=== PATIENT | male | born 1935 | race Caucasian/White ===

== ENCOUNTER 2018-05-29 21:58 | Inpatient (IN) | payer MEDICARE ==
[~2018-05-29] VITALS: Ht 170.2 cm; Wt 77.1 kg
[2018-05-29 22:00] VITALS: BP 108/40
[2018-05-29] MEDS: Albuterol ud Inhalation HHN SCH ×3 (22:25→22:50)
[2018-05-29 22:33] LABS: HEMATOCRIT 34.4 % (42.0-52.0); MEAN CORPUSCULAR VOLUME 96 FL (80-99); PLATELET COUNT 131 K/UL (150-450); RED BLOOD COUNT 3.57 M/UL (4.70-6.10); RED CELL DISTRIBUTION WIDTH 12.2 % (11.6-14.8); WHITE BLOOD COUNT 12.1 K/UL (4.8-10.8)
[2018-05-29 22:41] LABS: INR 1.1 (0.9-1.1)
[2018-05-29 22:42] LABS: ANION GAP 7 mmol/L (5-15); BLOOD UREA NITROGEN 29 mg/dL (7-18); CALCIUM 8.5 MG/DL (8.5-10.1); CARBON DIOXIDE 26 MMOL/L (21-32); CHLORIDE 106 MMOL/L (98-107); CREATININE 1.7 MG/DL (0.55-1.30); POTASSIUM 3.9 MMOL/L (3.5-5.1); SODIUM 139 MMOL/L (136-145)
[2018-05-29 22:52] LABS: ALANINE AMINOTRANSFERASE 18 U/L (12-78); ALBUMIN 3.2 G/DL (3.4-5.0); ALBUMIN/GLOBULIN RATIO 0.9 (1.0-2.7); ALKALINE PHOSPHATASE 74 U/L (46-116); ASPARTATE AMINO TRANSFERASE 59 U/L (15-37); BILIRUBIN,TOTAL 1.1 MG/DL (0.2-1.0); CREATINE KINASE 480 U/L (26-308)
[2018-05-29 22:53] LABS: BILIRUBIN,DIRECT 0.4 MG/DL (0.0-0.3)
[2018-05-29 22:59] VITALS: BP 109/69
[2018-05-29] MEDS ORDERED: Isovue-370 150ml vial INJ PRN (23:00)
[2018-05-29] MEDS ORDERED: LEXAPRO10 MG ORAL (23:07)
[2018-05-29] MEDS ORDERED: TIMOPTIC5 ML LEFT EYE (23:07)
[2018-05-29] MEDS ORDERED: ASPIRIN81 MG ORAL (23:07)
[2018-05-29] MEDS ORDERED: QUETIAPINE FUMA25 MG ORAL (23:07)
[2018-05-29] MEDS ORDERED: VITAMIN B-12100 MC1 PO (23:07)
[2018-05-29] MEDS ORDERED: KLOR-CON M2020 MEQ ORAL (23:07)
[2018-05-29] MEDS ORDERED: SINEMET 25-1001 EAC1 ORAL (23:07)
[2018-05-29 23:27] LABS: BILIRUBIN, URINE 1+ (NEGATIVE); GLUCOSE, URINE (UA) NEGATIVE (NEGATIVE); KETONES,URINE 2+ (NEGATIVE); LEUKOCYTE ESTERASE ,URINE 2+ (NEGATIVE); NITRITE,URINE NEGATIVE (NEGATIVE); PH,URINE 5 (4.5-8.0); PROTEIN,URINE 3+ (NEGATIVE); UROBILINOGEN,URINE 8 MG/DL (0.0-1.0)
[2018-05-29 23:30] VITALS: BP 108/79
[2018-05-29 23:39] LABS: APPEARANCE,URINE SLIGHTLY CLOUDY; COLOR,URINE AMBER
[2018-05-30] MEDS ORDERED: Heparin 25,000u/D5W 500ml 500 ML IV SCH ×2 (01:30→03:30)
[2018-05-30] MEDS ORDERED: Heparin 5000 units/ml inj IV ONE ×2 (01:30→03:30)
[2018-05-30 02:06] VITALS: BP 120/83
[2018-05-30] MEDS ORDERED: BYSTOLIC10 MG ORAL (02:08)
[2018-05-30] MEDS ORDERED: TAMSULOSIN HCL0.4 MG ORAL (02:08)
[2018-05-30] MEDS ORDERED: HYDROCHLOROTHIA25 MG ORAL (02:08)
[2018-05-30] MEDS ORDERED: VITAMIN D400 INTLU ORAL (02:08)
[2018-05-30 03:00] VITALS: BP 142/79
[2018-05-30 04:00] VITALS: BP 142/89
[2018-05-30] MEDS: Aspirin Baby 81mg ORAL SCH (08:29)
[2018-05-30] MEDS: Tamsulosin 0.4mg cap ORAL SCH ×2 (08:29→17:31)
[2018-05-30] MEDS ORDERED: Levodopa/Carbidopa 25/100 tab ORAL SCH (09:00)
--- NOTE | 2018-05-30 10:17 | Diagnostic Imaging Report ---
Indication: Chest pain, shortness of breath Technique: CT pulmonary angiogram performed utilizing automated exposure control with intravenous contrast. Axial, sagittal and coronal reconstructions were obtained. 3-D volumetric reconstructions were also performed. CT dose: Total DLP 912 mGycm; CTDI vol 0.2, 0.2, 21.6, 88.4, 26.4 mGy Comparison: None Findings: There are bilateral central and segmental pulmonary emboli throughout both lungs. No saddle pulmonary embolus. Main pulmonary artery is normal in caliber. No thoracic aortic aneurysm or dissection. There are small bilateral pleural effusions, right greater than left, with compressive atelectasis in the bilateral lower lobes. No pneumothorax. No pathologically enlarged mediastinal adenopathy. Thyroid unremarkable. Imaged upper abdomen is grossly unremarkable. There is scoliosis, osteopenia and multilevel degenerative change of the spine. No acute osseous abnormality. IMPRESSION: * Bilateral acute central and segmental pulmonary emboli throughout both lungs. * Small bilateral pleural effusions with adjacent likely compressive atelectasis in the bilateral lower lobes. This corresponds with the stat rad report. The CT scanner at [facility] is accredited by the [employer] and the scans are performed using protocols designed to limit radiation exposure to as low as reasonably achievable to attain images of sufficient resolution adequate for diagnostic evaluation.
[2018-05-30] MEDS: Timoptic 0.25% Op Soln 2.5ml LEFT EYE SCH (11:16)
--- NOTE | 2018-05-30 11:27 | Diagnostic Imaging Report ---
Indication: Chest pain Technique: XRAY Chest 1v Comparison: None Findings: Heart is enlarged. Atherosclerotic opacification is noted in the aortic arch. There is biapical scarring. There is blunting of the bilateral costophrenic sulci possibly related to trace bilateral pleural effusions. There is linear atelectasis at the left base. No pneumothorax. No acute osseous abnormality. Impression: Trace bilateral pleural effusions. Left basilar atelectasis. Correlate clinically to exclude pneumonia.
[2018-05-30] MEDS ORDERED: Eliquis 2.5mg tablet ORAL SCH ×3 (12:00→18:00)
--- NOTE | 2018-05-30 12:22 | Cardiology Progress Note ---
Assessment/Plan Assessment/Plan bilateral pulm emboli chest pain / abn cardiac enzyme likely related to above hs of htn parkinsonism hsof recent fall and syncope repat trop and ekg and echo on noacs may need to have cano for cause of PE venous duplex will follow many thanks [id number] Objective Last 24 Hour Vital Signs Date Time Temp Pulse Resp B/P (MAP) Pulse Ox O2 Delivery O2 Flow Rate FiO2 05/30/18 09:00 Nasal Cannula 4.0 05/30/18 08:00 83 05/30/18 04:00 76 05/30/18 04:00 Nasal Cannula 4.0 05/30/18 04:00 Nasal Cannula 4.0 05/30/18 04:00 97.9 72 16 142/89 (106) 96 97.9 05/30/18 03:00 97.7 75 16 142/79 (100) 97 97.7 05/30/18 02:58 99.0 73 20 120/83 90 Nasal Cannula 5.0 36 99.0 05/30/18 02:06 99.0 73 20 120/83 90 Nasal Cannula 5.0 99.0 05/29/18 23:30 98.3 92 20 108/79 90 Nasal Cannula 4.0 98.3 05/29/18 23:11 83 22 96 Nasal Cannula 4.0 36 05/29/18 22:59 98.1 92 23 109/69 90 Nasal Cannula 6.0 98.1 05/29/18 22:49 81 22 98 Nasal Cannula 4.0 36 05/29/18 22:49 82 22 98 Nasal Cannula 4.0 36 05/29/18 22:32 88 22 95 Nasal Cannula 4.0 36 05/29/18 22:32 88 22 95 Nasal Cannula 4.0 36 05/29/18 22:31 86 22 4.0 36 05/29/18 22:26 86 22 90 Nasal Cannula 4.0 36 05/29/18 22:00 98.1 84 16 108/40 78 Room Air 98.1 05/29/18 21:52 98.0 88 16 113/78 78 Room Air 98.1 Intake and Output 05/29/18 05/30/18 19:00 07:00 Intake Total 48.987 ml Balance 48.987 ml Intake Oral 0 ml IV Total 48.987 ml # Voids 2 Laboratory Tests Test 05/29/18 22:15 7/9/18 23:04 05/30/18 00:32 05/30/18 07:45 White Blood Count 12.1 K/UL (4.8-10.8) H Red Blood Count 3.57 M/UL (4.70-6.10) L Hemoglobin 12.0 G/DL (14.2-18.0) L Hematocrit 34.4 % (42.0-52.0) L Mean Corpuscular Volume 96 FL (80-99) Mean Corpuscular Hemoglobin 33.7 PG (27.0-31.0) H Mean Corpuscular Hemoglobin Concent 34.9 G/DL (32.0-36.0) Red Cell Distribution Width 12.2 % (11.6-14.8) Platelet Count 131 K/UL (150-450) L Mean Platelet Volume 8.8 FL (6.5-10.1) Neutrophils (%) (Auto) % (45.0-75.0) Lymphocytes (%) (Auto) % (20.0-45.0) Monocytes (%) (Auto) % (1.0-10.0) Eosinophils (%) (Auto) % (0.0-3.0) Basophils (%) (Auto) % (0.0-2.0) Differential Total Cells Counted 100 Neutrophils % (Manual) 87 % (45-75) H Lymphocytes % (Manual) 9 % (20-45) L Monocytes % (Manual) 4 % (1-10) Eosinophils % (Manual) 0 % (0-3) Basophils % (Manual) 0 % (0-2) Band Neutrophils 0 % (0-8) Platelet Estimate Adequate Platelet Morphology Normal Red Blood Cell Morphology Normal Prothrombin Time 11.5 SEC (9.30-11.50) Prothromb Time International Ratio 1.1 (0.9-1.1) Activated Partial Thromboplast Time 25 SEC (23-33) 40 SEC (23-33) H Sodium Level 139 MMOL/L (136-145) Potassium Level 3.9 MMOL/L (3.5-5.1) Chloride Level 106 MMOL/L (98-107) Carbon Dioxide Level 26 MMOL/L (21-32) Anion Gap 7 mmol/L (5-15) Blood Urea Nitrogen 29 mg/dL (7-18) H Creatinine 1.7 MG/DL (0.55-1.30) H Estimat Glomerular Filtration Rate mL/min (>60) Glucose Level 183 MG/DL (74-106) H Lactic Acid Level 3.40 mmol/L (0.4-2.0) H 2.30 mmol/L (0.66-2.22) H Calcium Level 8.5 MG/DL (8.5-10.1) Total Bilirubin 1.1 MG/DL (0.2-1.0) H Direct Bilirubin 0.4 MG/DL (0.0-0.3) H Aspartate Amino Transf (AST/SGOT) 59 U/L (15-37) H Alanine Aminotransferase (ALT/SGPT) 18 U/L (12-78) Alkaline Phosphatase 74 U/L (46-116) Total Creatine Kinase 480 U/L (26-308) H Troponin I 0.351 ng/mL (0.000-0.056) Pro-B-Type Natriuretic Peptide 6760 pg/mL (0-125) H Total Protein 6.6 G/DL (6.4-8.2) Albumin 3.2 G/DL (3.4-5.0) L Globulin 3.4 g/dL Albumin/Globulin Ratio 0.9 (1.0-2.7) L Lipase 58 U/L (73-393) L Urine Color [place] Urine Appearance Slightly cloudy Urine pH 5 (4.5-8.0) Urine Specific [place] 1.025 (1.005-1.035) Urine Protein 3+ (NEGATIVE) H Urine Glucose (UA) Negative (NEGATIVE) Urine Ketones 2+ (NEGATIVE) H Urine Occult Blood 1+ (NEGATIVE) H Urine Nitrite Negative (NEGATIVE) Urine Bilirubin 1+ (NEGATIVE) H Urine Ictotest Positive Urine Urobilinogen 8 MG/DL (0.0-1.0) H Urine Leukocyte Esterase 2+ (NEGATIVE) H Urine RBC 0-2 /HPF (0 - 0) H Urine WBC 10-15 /HPF (0 - 0) H Urine Squamous Epithelial Cells Few /LPF (NONE/OCC) Urine Bacteria Few /HPF (NONE) Urine Hyaline Casts 2-4 /LPF (NONE) H Urine Coarse Granular Casts 0-2 /LPF (NONE) H Urine Mucus Moderate /LPF (NONE/OCC) H Test 05/30/18 11:10 Activated Partial Thromboplast Time 34 SEC (23-33) H Bob Hanna MD May 30, 2018 12:22
[2018-05-30 13:06] VITALS: BP 140/87
--- NOTE | 2018-05-30 13:45 | Cardiology Report ---
APPROVED REPORT EXAM: Two-dimensional and M-mode echocardiogram with Doppler and color Doppler. INDICATION Chest Pain M-Mode DIMENSIONS IVSd0.8 (0.7-1.1cm)Left Atrium (MM)2.4 (1.6-4.0cm) LVDd4.9 (3.5-5.6cm)Aortic Root3.1 (2.0-3.7cm) PWd0.7 (0.7-1.1cm)Aortic Cusp Exc.1.8 (1.5-2.0cm) LVDs3.2 (2.5-4.0cm) PWs1.1 cm Normal left ventricular chamber size, systolic function and wall motion. Left ventricular ejection fraction estimated to be 55-60%. No evidence of left ventricular hypertrophy. No evidence of pericardial or pleural effusion. Left cardiac chamber sizes are within normal limits. Mild right atrial and right ventricular enlargement by 2D. Focal aortic valve sclerosis with adequate cusp excursion. Thickened mitral valve leaflets with normal excursion. Mild mitral annulus and aortic root calcification. Pulmonic valve not well visualized. Normal tricuspid valve structure. IVC dilated at 2.9cm non-collapsible with respiration indicate increased RA pressure. A color flow and spectral Doppler study was performed and revealed: Mild aortic regurgitation. No mitral regurgitation. Mitral diastolic velocities suggest reduced left ventricular relaxation c/w diastolic dysfunction grade 1. Mild tricuspid regurgitation (2 jets). Tricuspid systolic velocities suggests peak right ventricular systolic pressure of 50 mmHg Consistent with moderate pulmonary hypertension
--- NOTE | 2018-05-30 14:06 | Emergency Room Report ---
History of Present Illness General Chief Complaint: Syncope Source: Patient, Family Member, EMS Present Illness HPI Patient presents with syncope and hypotension. Recent admission to [facility] where the d/c diagnosis was orthostatic hypotension. Initially CT head performed as he hit his head with the first time he passed out. Patient denies CP or dyspnea. At [facility], claims he had easy bleeding and aspirin was held. No vomiting, melena. He is on meds for high blood pressure. H/O Parkinson's. Stable on meds. Some cognitive decline. Claustrophobia Allergies: Coded Allergies: HALOPERIDOL (Verified Allergy, Unknown, 05/29/18) Patient History Past Medical History: see triage record Social History: Denies: smoking Social History Narrative - from home Reviewed Nursing Documentation: PMH: Agreed; PSxH: Agreed Nursing Documentation-PMH Hx Hypertension: Yes Hx Cancer: No Hx Gastrointestinal Problems: No Hx Neurological Problems: Yes - PARKINSONS Review of Systems All Other Systems: negative except mentioned in HPI Physical Exam Vital Signs Date Time Temp Pulse Resp B/P (MAP) Pulse Ox O2 Delivery O2 Flow Rate FiO2 05/29/18 21:52 98.0 88 16 113/78 78 Room Air 98.1 05/29/18 22:26 4.0 36 Sp02 EP Interpretation: reviewed, abnormal - interpreted as low by me General Appearance: no apparent distress, alert, thin, Chronically Ill Head: normocephalic, atraumatic Eyes: bilateral eye normal inspection, bilateral eye PERRL ENT: moist mucus membranes Neck: supple Respiratory: lungs clear, normal breath sounds Cardiovascular #1: regular rate, rhythm Cardiovascular #2: 2+ radial (R) Gastrointestinal: normal inspection, normal bowel sounds, non tender, no mass, non-distended Musculoskeletal: back normal, gait/station normal, normal range of motion Neurologic: alert, DTRs symmetric, sensory intact, motor weakness, oriented Psychiatric: depressed affect Skin: normal inspection, warm/dry Medical Decision Making Diagnostic Impression: Primary Impression: Pulmonary emboli Qualified Codes: I26.99 - Other pulmonary embolism without acute cor pulmonale Additional Impressions: NSTEMI (non-ST elevated myocardial infarction) Hypoxia Parkinson's disease ER Course Patient with syncope, hypotension and hypoxia. DDx: AMI, PE, volume depletion, orthostatic hypotension, sepsis amongst others. Evaluation with EKG, CXR and labs. O2 sat very low and breathing treatment ordered as well as titration of oxygen. Lab called with + troponin. No STEMI on EKG - ST inversions inferiorly. Aspirin given. CXR with possible small pleural effusion L. Due to continued hypoxia, CTA ordered. Multiple pulmonary emboli. Heparin begun. Discussed findings with family. Admit SDU, Dr. Ricketts. Laboratory Tests Test 05/29/18 22:15 05/29/18 23:04 05/30/18 00:32 05/30/18 07:45 White Blood Count 12.1 K/UL (4.8-10.8) H Red Blood Count 3.57 M/UL (4.70-6.10) L Hemoglobin 12.0 G/DL (14.2-18.0) L Hematocrit 34.4 % (42.0-52.0) L Mean Corpuscular Volume 96 FL (80-99) Mean Corpuscular Hemoglobin 33.7 PG (27.0-31.0) H Mean Corpuscular Hemoglobin Concent 34.9 G/DL (32.0-36.0) Red Cell Distribution Width 12.2 % (11.6-14.8) Platelet Count 131 K/UL (150-450) L Mean Platelet Volume 8.8 FL (6.5-10.1) Neutrophils (%) (Auto) % (45.0-75.0) Lymphocytes (%) (Auto) % (20.0-45.0) Monocytes (%) (Auto) % (1.0-10.0) Eosinophils (%) (Auto) % (0.0-3.0) Basophils (%) (Auto) % (0.0-2.0) Differential Total Cells Counted 100 Neutrophils % (Manual) 87 % (45-75) H Lymphocytes % (Manual) 9 % (20-45) L Monocytes % (Manual) 4 % (1-10) Eosinophils % (Manual) 0 % (0-3) Basophils % (Manual) 0 % (0-2) Band Neutrophils 0 % (0-8) Platelet Estimate Adequate Platelet Morphology Normal Red Blood Cell Morphology Normal Prothrombin Time 11.5 SEC (9.30-11.50) Prothrombin Time INR 1.1 (0.9-1.1) PTT 25 SEC (23-33) 40 SEC (23-33) H Sodium Level 139 MMOL/L (136-145) Potassium Level 3.9 MMOL/L (3.5-5.1) Chloride Level 106 MMOL/L (98-107) Carbon Dioxide Level 26 MMOL/L (21-32) Anion Gap 7 mmol/L (5-15) Blood Urea Nitrogen 29 mg/dL (7-18) H Creatinine 1.7 MG/DL (0.55-1.30) H Estimate Glomerular Filtration Rate mL/min (>60) Glucose Level 183 MG/DL (74-106) H Lactic Acid Level 3.40 mmol/L (0.4-2.0) H 2.30 mmol/L (0.66-2.22) H Calcium Level 8.5 MG/DL (8.5-10.1) Total Bilirubin 1.1 MG/DL (0.2-1.0) H Direct Bilirubin 0.4 MG/DL (0.0-0.3) H Aspartate Amino Transferase (AST) 59 U/L (15-37) H Alanine Aminotransferase (ALT) 18 U/L (12-78) Alkaline Phosphatase 74 U/L (46-116) Total Creatine Kinase 480 U/L (26-308) H Troponin I 0.351 ng/mL (0.000-0.056) Pro-B-Type Natriuretic Peptide 6760 pg/mL (0-125) H Total Protein 6.6 G/DL (6.4-8.2) Albumin 3.2 G/DL (3.4-5.0) L Globulin 3.4 g/dL Albumin/Globulin Ratio 0.9 (1.0-2.7) L Lipase 58 U/L (73-393) L Urine Color [place] Urine Appearance Slightly cloudy Urine pH 5 (4.5-8.0) Urine Specific [place] 1.025 (1.005-1.035) Urine Protein 3+ (NEGATIVE) H Urine Glucose (UA) Negative (NEGATIVE) Urine Ketones 2+ (NEGATIVE) H Urine Occult Blood 1+ (NEGATIVE) H Urine Nitrite Negative (NEGATIVE) Urine Bilirubin 1+ (NEGATIVE) H Urine Ictotest Positive Urine Urobilinogen 8 MG/DL (0.0-1.0) H Urine Leukocyte Esterase 2+ (NEGATIVE) H Urine RBC 0-2 /HPF (0 - 0) H Urine WBC 10-15 /HPF (0 - 0) H Urine Squamous Epithelial Cells Few /LPF (NONE/OCC) Urine Bacteria Few /HPF (NONE) Urine Hyaline Casts 2-4 /LPF (NONE) H Urine Coarse Granular Casts 0-2 /LPF (NONE) H Urine Mucus Moderate /LPF (NONE/OCC) H Test 05/30/18 11:10 05/30/18 12:45 PTT 34 SEC (23-33) H Troponin I 0.209 ng/mL (0.000-0.056) EKG Diagnostic Results Rate: normal Rhythm: NSR ST Segments: no acute changes ASA given to the pt in ED: Yes Rhythm Strip Diag. Results EP Interpretation: yes Rhythm: NSR, no PVC's, no ectopy Chest X-Ray Diagnostic Results Chest X-Ray Diagnostic Results : Chest X-Ray Ordered: Yes # of Views/Limited/Complete: 1 View Indication: Other EP Interpretation: Yes Interpretation: no consolidation, no pneumothorax, other - atelectasis Impression: Other Electronically Signed by: Alexander Lang MD CT/MRI/US Diagnostic Results CT/MRI/US Diagnostic Results : Imaging Test Ordered: CTA chest Impression multiple segmental PEs. No saddle embolus. Last Vital Signs Date Time Temp Pulse Resp B/P (MAP) Pulse Ox O2 Delivery O2 Flow Rate FiO2 05/30/18 13:06 97.3 71 26 140/87 (104) 92 97.3 05/30/18 09:00 Nasal Cannula 4.0 05/30/18 02:58 36 Status: improved Disposition: ADMITTED INPATIENT Condition: Critical Referrals: NON PHYSICIAN (PCP) Alexander Lang M.D. May 30, 2018 14:06
--- NOTE | 2018-05-30 14:08 | Cardiology Report ---
APPROVED REPORT EKG Measurement Heart [id number] Normal sinus rhythm pulm disease pattern cannot exclude inferolateral ischemia
[2018-05-30] MEDS: Levodopa/Carbidopa 25/100 tab ORAL SCH ×3 (14:12→21:06)
[2018-05-30 20:00] VITALS: BP 157/86
[2018-05-30] MEDS: Eliquis 2.5mg tablet ORAL SCH (21:06)
[2018-05-30] MEDS: Levodopa/Carbidopa CR 50/200 tab ORAL SCH (21:06)
--- NOTE | 2018-05-30 22:00 | History and Physical Report ---
DATE OF ADMISSION: 05/29/2018 CHIEF COMPLAINT/REASON FOR HOSPITALIZATION: The patient was admitted with Parkinson's disease and pulmonary emboli. HISTORY OF PRESENT ILLNESS: The patient is an 83-year-old man with history of Parkinson's disease. He was recently at [facility] who apparently had collapsing, eyes rolled back, hard to get up, generalized weakness. He was discharged home and came back to the emergency room at [facility] apparently collapsing at home. Family had to get him off the floor. It was hard to get him off the floor. He had abdominal pain, looked pale and weak. In the emergency room, he was evaluated and imaging was consistent with an acute pulmonary emboli. He is not known to have pulmonary emboli in the past. The patient has had a history of hypertension and Parkinson's disease. He has had a decline in ability to walk likely from orthostatic hypotension and his blood pressure medicines were stopped recently. HABITS: He is a nonsmoker. Alcohol, occasional. SOCIAL HISTORY: Lives with extended family. PAST SURGICAL HISTORY: Surgeries include retina surgery and other eye surgery. He had retinal detachment and a hernia. MEDICATIONS: At home include potassium 20 mEq daily, hydrochlorothiazide 25 mg daily, tamsulosin 0.4 mg b.i.d., B12 uncertain dose, vitamin D3 2000 units daily, Lexapro 10 mg daily, Bystolic 10 mg daily, aspirin 81 mg daily, Seroquel a quarter of a tablet daily. Parkinson medicine, Sinemet CR 2 tablets of 25/100 mg immediate release and 0.5 tablet of 50/200 mg in the morning; at 11 a.m., 1-1/2 tablets of 25/100 mg IR and half a tablet of 50/200 mg CR; at 3 p.m., 1-1/2 tablets of 25/100 mg IR and half a tablet of 50/200 mg CR and at 7.30, same; and at 10 p.m., 1-1/2 tablets of 50/200 mg. REVIEW OF SYSTEMS: HEAD, EYES, EARS, NOSE, AND THROAT: History of retinal detachment. Hearing is good. ENDOCRINE: No diabetes or thyroid disease. PULMONARY: No asthma, TB, or chronic cough. CARDIAC: He has had vague chest discomfort associated with the current illness. No history of chronic angina or arrhythmias. He has hypertension as above with orthostatic hypotension. GASTROINTESTINAL: No ulcers or GI bleeding. Had abdominal pain prior to this admission, which resolved. GENITOURINARY: He has some difficulty urinating, on medications for BPH, occasional incontinence. NEUROLOGIC: Long-standing Parkinson's. No stroke. PHYSICAL EXAMINATION: GENERAL: The patient is alert man, lying in bed, in no acute distress. VITAL SIGNS: Temperature 97.9 degrees, pulse 72, respirations 16, and blood pressure 142/89. HEAD, EYES, EARS, NOSE, AND THROAT: Sclerae are nonicteric. Ocular motions intact in all directions. Oral mucosa slightly dry. NECK: No adenopathy or thyroid enlargement. LUNGS: Clear. HEART: Regular rate and rhythm. I hear no murmur. ABDOMEN: Soft without organomegaly or masses. EXTREMITIES: No edema, cyanosis, or clubbing. There are mild degenerative changes in the knees. NEUROLOGIC: He is alert and oriented. He has a moderate to severe parkinsonian tremor. Ocular motion intact in all directions. There is a questionable asymmetric smile. He moves all extremities equally. He has generalized weakness. PERTINENT LABS: White count 12.1 and hemoglobin 12. Electrolytes normal, BUN 29 and creatinine 1.7. Lactate 3.4 and 2.3. Troponin 0.351. BNP 6760. IMPRESSION: 1. Acute pulmonary emboli. 2. Elevated troponin likely secondary to above. 3. Parkinson's. 4. History of orthostatic hypotension. 5. Elevated BNP. 6. Gait disorder. 7. Abnormal urinalysis with leukocytosis, possibly urinary tract infection. PLAN: The patient will be placed back on his Parkinson medicines, treated for UTI, given anticoagulants, and watch closely in view of his comorbidities. Alan Ricketts M.D. DR: FORTUNATO JOB#: [id number] CC:
--- NOTE | 2018-05-30 23:00 | Consultation ---
DATE OF CONSULTATION: 05/30/2018 CARDIOLOGY CONSULTATION CONSULTING PHYSICIAN: Misha Ricketts M.D. REASON FOR REFERRAL: Abnormal cardiac enzymes. HISTORY OF PRESENT ILLNESS: This is an elderly gentleman with history of recent hospitalization and discharged from [facility] two days ago. He basically has a Parkinson disease, he has fallen, and developed some acute encephalopathy. He was seen at [facility], was hospitalized, and was felt to have orthostatic hypotension. His cardiac enzymes, at that time, were negative. The patient was treated and eventually is discharged home off of Bystolic, which he was taking, hydrochlorothiazide, as well as Flomax that he was taking with recommendation to follow up as outpatient. However on discharge, his family noticed that he is very difficult to move, he was unable to move around as much as he usually had been, although he previously has had difficulty with movement. They tried to get him into the bathroom and he basically felt like a weight and complained of some pain initially in the left side of his shoulder area and then subsequently in both shoulder areas and then some kind of a pain in the chest, epigastric area. That is when the paramedics were summoned and the patient was brought at this time to the emergency room here at [facility]. At the time of this dictation, he does not have any chest pain. He is really not short of breath at this time. He does not himself unfortunately recall the exact chest pain that he was experiencing yesterday so that information is limited to what he is capable of providing and what I was able to obtain from his son at the bedside. Remainder of the history and physical is obtained from the patient, the patient's son, as well as review of the [facility] [place] records. The patient does not have diabetes. He has high blood pressure. Previously, no history of heart attack. His cholesterol has been controlled. No history of cancer. No stroke. No hepatitis or tuberculosis. No asthma or emphysema. No ulcers. No kidney problems, liver problems, thyroid problems, anemia, or arthritis. PAST MEDICAL HISTORY: According to [facility] is positive only for this episode of parkinsonism. As mentioned, he does have history of high blood pressure, depression, as well as syncope versus mechanical fall that felt to be possibly orthostatic in nature, and hypernatremia, probably secondary to orthostasis. ALLERGIES: He is not allergic to any medications. SOCIAL HISTORY: He does not smoke or drink and no drugs. 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 REVIEW OF SYSTEMS: GASTROINTESTINAL: He did have some nausea yesterday. GENITOURINARY: Negative. PULMONARY: Occasional coughing. CONSTITUTIONAL: He did have a lot of sweating during this episode of chest pain last night according to his son, of course, the temperature in the house was also elevated. CONSTITUTIONAL: Otherwise, negative. NEUROLOGIC: He denies except for the fact of Parkinson's. PHYSICAL EXAMINATION: GENERAL: Shows to be elderly gentleman, in no respiratory distress. He has a parkinsonian tremor. NECK: Supple. There is jugular venous distention noted. LUNGS: In the upper lungs, however, crackles noted bilaterally. CARDIAC: Regular rate and rhythm. No heaves and no thrills noted. ABDOMEN: Soft and nontender. Positive bowel sounds. EXTREMITIES: There is no edema. NEUROLOGICAL: Awake and responsive. Parkinson tremor is noted as mentioned. LABORATORY AND DIAGNOSTIC DATA: He has had a chest x-ray in the emergency room that shows trace bilateral pleural effusions, left atelectasis. Subsequently, he had the CT coronary angiogram that shows bilateral acute central and segmental pulmonary emboli throughout both lungs, small bilateral pleural effusions, and adjacent compressive atelectasis in bilateral lower lobes. His blood tests, sodium 139, potassium 3.9, chloride 106, bicarb 29, creatinine of 1.7, and glucose of 183. Lactic acid of 3.4, subsequently 2.3. AST and ALT were within normal limits. CK of 480. Troponin first set 0.351 and proBNP of 6760. Albumin of 3.2. Lipase was 58. His INR was 1.1 and a PTT of 25. His urinalysis shows 10 to 15 wbc's, 0 to 2 rbc's, and 2+ leukocyte esterase as well. ASSESSMENT: 1. Bilateral central and subsegmental pulmonary embolism. 2. Abnormal cardiac enzymes, most likely secondary to above. 3. Chest pain, likely secondary to above. 4. Parkinsonism. 5. History of hypertension. 6. History of recent syncope for which his blood pressure medications were discontinued. PLAN: Dr. Ricketts, this patient was seen in cardiac consultation. The patient's blood pressure appears to be adequate between 120/80 to 142/79. His first set of cardiac enzymes are negative. His electrocardiogram does show some T-wave inversions in III, aVF, and V2. Pulmonary pattern may also be present. He does have some T-wave inversions in V3, V4, V5, and a biphasic T-wave in V6 as well. He really does not have any chest pain at this time. Repeat cardiac enzymes should be performed. An echocardiogram should be performed as well. I suspect that most of his issues is probably all related to pulmonary embolism. He does have some jugular venous distention. We will see if he has got pulmonary hypertension as well. He is on anticoagulation already initially with heparin and now with that Dr. Ricketts has already started. It may be necessary to work up the cause of his parkinsonism although he may have been sort of at bedrest for couple days prior to that, that may have contributed to this development of pulmonary embolism. Venous duplex study of the lower extremities to be considered as well. Cardiac enzymes and EKG will be repeated. The perfusion imaging may be necessary depending on what shows up on the repeat cardiac enzymes as well as EKGs and echocardiogram report. Bob Hanna M.D. DR: NEIL JOB#: [id number] CC:
[2018-05-31] VITALS: BP 125/73
[2018-05-31 04:00] VITALS: BP 141/72
[2018-05-31 04:54] LABS: BASOPHILS % (AUTO) 0.2 % (0.0-2.0); EOSINOPHILS % (AUTO) 2.1 % (0.0-3.0); HEMOGLOBIN 11.5 G/DL (14.2-18.0); LYMPHOCYTES % (AUTO) 14.5 % (20.0-45.0); MEAN CORPUSCULAR VOLUME 98 FL (80-99); MONOCYTES % (AUTO) 8.5 % (1.0-10.0); NEUTROPHILS % (AUTO) 74.7 % (45.0-75.0); PLATELET COUNT 131 K/UL (150-450); RED BLOOD COUNT 3.48 M/UL (4.70-6.10); RED CELL DISTRIBUTION WIDTH 11.8 % (11.6-14.8); WHITE BLOOD COUNT 10.3 K/UL (4.8-10.8)
[2018-05-31 05:17] LABS: ALANINE AMINOTRANSFERASE 14 U/L (12-78); ALBUMIN/GLOBULIN RATIO 0.8 (1.0-2.7); ALKALINE PHOSPHATASE 68 U/L (46-116); ANION GAP 6 mmol/L (5-15); ASPARTATE AMINO TRANSFERASE 31 U/L (15-37); BILIRUBIN,TOTAL 0.6 MG/DL (0.2-1.0); BLOOD UREA NITROGEN 31 mg/dL (7-18); CALCIUM 8.6 MG/DL (8.5-10.1); CARBON DIOXIDE 30 MMOL/L (21-32); CHLORIDE 107 MMOL/L (98-107); CHOLESTEROL 160 MG/DL (< 200); CREATININE 1.1 MG/DL (0.55-1.30); HDL CHOLESTEROL 66 MG/DL (40-60); POTASSIUM 3.5 MMOL/L (3.5-5.1); SODIUM 143 MMOL/L (136-145); TRIGLYCERIDES 60 MG/DL (30-150)
[2018-05-31 05:58] LABS: CREATINE KINASE 198 U/L (26-308)
[2018-05-31 08:00] VITALS: BP 158/95
[2018-05-31] MEDS: Aspirin Baby 81mg ORAL SCH (09:33)
[2018-05-31] MEDS: Levodopa/Carbidopa 25/100 tab ORAL SCH ×4 (09:33→20:39)
[2018-05-31] MEDS: Tamsulosin 0.4mg cap ORAL SCH ×2 (09:33→17:23)
[2018-05-31] MEDS: Levodopa/Carbidopa CR 50/200 tab ORAL SCH ×2 (09:33→20:39)
[2018-05-31] MEDS: Timoptic 0.25% Op Soln 2.5ml LEFT EYE SCH (09:34)
[2018-05-31] MEDS: Eliquis 2.5mg tablet ORAL SCH ×2 (09:34→20:38)
[2018-05-31 12:00] VITALS: BP 128/72
[2018-05-31 16:00] VITALS: BP 157/88
[2018-05-31] MEDS ORDERED: Vancomycin 1gm/D5W 275ml IVPB SCH ×2 (16:00)
--- NOTE | 2018-05-31 16:11 | Cardiology Report ---
APPROVED REPORT EKG Measurement Heart [id number] Normal sinus rhythm Normal ECG
--- NOTE | 2018-05-31 17:56 | General Progress Note ---
Assessment/Plan Problem List: (1) Sepsis ICD Codes: A41.9 - Sepsis, unspecified organism SNOMED: 79811533 (2) DVT (deep venous thrombosis) ICD Codes: I82.409 - Acute embolism and thrombosis of unspecified deep veins of unspecified lower extremity SNOMED: 653196792 (3) Gait abnormality ICD Codes: R26.9 - Unspecified abnormalities of gait and mobility SNOMED: 82832862 (4) Parkinson's disease ICD Codes: G20 - Parkinson's disease SNOMED: 86885108 (5) Pulmonary emboli ICD Codes: I26.99 - Other pulmonary embolism without acute cor pulmonale SNOMED: 94108705 Qualifiers: Qualified Codes: I26.99 - Other pulmonary embolism without acute cor pulmonale (6) NSTEMI (non-ST elevated myocardial infarction) ICD Codes: I21.4 - Non-ST elevation (NSTEMI) myocardial infarction SNOMED: 228100302 Assessment/Plan eliquis, vanco, cardiac eval ongoing, orthostatic vs Subjective Constitutional: Reports: weakness HEENT: Reports: no symptoms Cardiovascular: Reports: no symptoms Respiratory: Reports: no symptoms Gastrointestinal/Abdominal: Reports: no symptoms Genitourinary: Reports: no symptoms Neurologic/Psychiatric: Reports: pre-existing deficit Endocrine: Reports: no symptoms Hematologic/Lymphatic: Reports: no symptoms Allergies: Coded Allergies: HALOPERIDOL (Verified Allergy, Unknown, 05/29/18) Objective Last 24 Hour Vital Signs Date Time Temp Pulse Resp B/P (MAP) Pulse Ox O2 Delivery O2 Flow Rate FiO2 05/31/18 16:00 66 05/31/18 16:00 97.5 65 18 157/88 (111) 94 97.5 05/31/18 16:00 Nasal Cannula 4.0 05/31/18 12:00 98.1 64 20 128/72 (90) 97 98.1 05/31/18 12:00 Nasal Cannula 4.0 05/31/18 11:50 78 05/31/18 08:00 97.9 69 18 158/95 (116) 96 97.9 05/31/18 08:00 Nasal Cannula 4.0 05/31/18 08:00 66 05/31/18 04:00 97.7 62 20 141/72 (95) 98 97.7 05/31/18 04:00 64 05/31/18 04:00 Nasal Cannula 4.0 05/31/18 00:00 Nasal Cannula 4.0 05/31/18 00:00 67 05/31/18 00:00 97.5 70 21 125/73 (90) 98 97.5 05/30/18 20:00 97.6 71 22 157/86 (109) 93 97.6 05/30/18 20:00 Nasal Cannula 4.0 05/30/18 20:00 70 Intake and Output 05/30/18 05/31/18 19:00 07:00 Intake Total 481.645 ml Output Total 600 ml 400 ml Balance -118.355 ml -400 ml Intake Oral 400 ml IV Total 81.645 ml Output Urine Total 600 ml 400 ml Laboratory Tests 05/30/18 20:24: Troponin I 0.144H 05/31/18 03:16: Troponin I 0.101H, White Blood Count 10.3, Red Blood Count 3.48L, Hemoglobin 11.5L, Hematocrit 34.0L, Mean Corpuscular Volume 98, Mean Corpuscular Hemoglobin 33.1H, Mean Corpuscular Hemoglobin Concent 33.9, Red Cell Distribution Width 11.8, Platelet Count 131L, Mean Platelet Volume 8.8, Neutrophils (%) (Auto) 74.7, Lymphocytes (%) (Auto) 14.5L, Monocytes (%) (Auto) 8.5, Eosinophils (%) (Auto) 2.1, Basophils (%) (Auto) 0.2, Sodium Level 143, Potassium Level 3.5, Chloride Level 107, Carbon Dioxide Level 30, Anion Gap 6, Blood Urea Nitrogen 31H, Creatinine 1.1, Estimat Glomerular Filtration Rate , Glucose Level 92, Calcium Level 8.6, Total Bilirubin 0.6, Aspartate Amino Transf (AST/SGOT) 31, Alanine Aminotransferase (ALT/SGPT) 14, Alkaline Phosphatase 68, Total Creatine Kinase 198, Total Protein 6.8, Albumin 3.0L, Globulin 3.8, Albumin/Globulin Ratio 0.8L, Triglycerides Level 60, Cholesterol Level 160, LDL Cholesterol 92, HDL Cholesterol 66H, Cholesterol/HDL Ratio 2.4L Height (Feet): 5 Height (Inches): 7.00 Weight (Pounds): 170 General Appearance: no apparent distress, alert EENT: normal ENT inspection Neck: normal alignment Cardiovascular: normal peripheral pulses Respiratory/Chest: lungs clear Abdomen: non tender, soft Neurologic: chemist pharmaceutical II-XII grossly normal, other - mild tremor TONIA XAVIER May 31, 2018 17:55
--- NOTE | 2018-05-31 18:43 | Cardiology Progress Note ---
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 dr yaniv rodriguez this year per i suspect trop abn related to PE not an acs on noacs need higher initial doses tele reviewed may need to have cano for cause of PE venous duplex postive for bellwo dvt d/w watch bp reading orthostatic vitals Subjective Cardiovascular: Denies: chest pain, lightheadedness, palpitations Respiratory: Denies: shortness of breath Gastrointestinal/Abdominal: Denies: abdominal pain Genitourinary: Denies: burning Objective Last 24 Hour Vital Signs Date Time Temp Pulse Resp B/P (MAP) Pulse Ox O2 Delivery O2 Flow Rate FiO2 05/31/18 16:00 66 05/31/18 16:00 97.5 65 18 157/88 (111) 94 97.5 05/31/18 16:00 Nasal Cannula 4.0 05/31/18 12:00 98.1 64 20 128/72 (90) 97 98.1 05/31/18 12:00 Nasal Cannula 4.0 05/31/18 11:50 78 05/31/18 08:00 97.9 69 18 158/95 (116) 96 97.9 05/31/18 08:00 Nasal Cannula 4.0 05/31/18 08:00 66 05/31/18 04:00 97.7 62 20 141/72 (95) 98 97.7 05/31/18 04:00 64 05/31/18 04:00 Nasal Cannula 4.0 05/31/18 00:00 Nasal Cannula 4.0 05/31/18 00:00 67 05/31/18 00:00 97.5 70 21 125/73 (90) 98 97.5 05/30/18 20:00 97.6 71 22 157/86 (109) 93 97.6 05/30/18 20:00 Nasal Cannula 4.0 05/30/18 20:00 70 General Appearance: no apparent distress, alert Neck: supple Cardiovascular: normal rate, regular rhythm Respiratory/Chest: lungs clear Abdomen: normal bowel sounds, non tender, soft Extremities: no swelling Intake and Output 05/30/18 05/31/18 19:00 07:00 Intake Total 481.645 ml Output Total 600 ml 400 ml Balance -118.355 ml -400 ml Intake Oral 400 ml IV Total 81.645 ml Output Urine Total 600 ml 400 ml Laboratory Tests Test 05/30/18 20:24 05/31/18 03:16 Troponin I 0.144 ng/mL (0.000-0.056) 0.101 ng/mL (0.000-0.056) White Blood Count 10.3 K/UL (4.8-10.8) Red Blood Count 3.48 M/UL (4.70-6.10) L Hemoglobin 11.5 G/DL (14.2-18.0) L Hematocrit 34.0 % (42.0-52.0) L Mean Corpuscular Volume 98 FL (80-99) Mean Corpuscular Hemoglobin 33.1 PG (27.0-31.0) H Mean Corpuscular Hemoglobin Concent 33.9 G/DL (32.0-36.0) Red Cell Distribution Width 11.8 % (11.6-14.8) Platelet Count 131 K/UL (150-450) L Mean Platelet Volume 8.8 FL (6.5-10.1) Neutrophils (%) (Auto) 74.7 % (45.0-75.0) Lymphocytes (%) (Auto) 14.5 % (20.0-45.0) L Monocytes (%) (Auto) 8.5 % (1.0-10.0) Eosinophils (%) (Auto) 2.1 % (0.0-3.0) Basophils (%) (Auto) 0.2 % (0.0-2.0) Sodium Level 143 MMOL/L (136-145) Potassium Level 3.5 MMOL/L (3.5-5.1) Chloride Level 107 MMOL/L (98-107) Carbon Dioxide Level 30 MMOL/L (21-32) Anion Gap 6 mmol/L (5-15) Blood Urea Nitrogen 31 mg/dL (7-18) H Creatinine 1.1 MG/DL (0.55-1.30) Estimat Glomerular Filtration Rate mL/min (>60) Glucose Level 92 MG/DL (74-106) Calcium Level 8.6 MG/DL (8.5-10.1) Total Bilirubin 0.6 MG/DL (0.2-1.0) Aspartate Amino Transf (AST/SGOT) 31 U/L (15-37) Alanine Aminotransferase (ALT/SGPT) 14 U/L (12-78) Alkaline Phosphatase 68 U/L (46-116) Total Creatine Kinase 198 U/L (26-308) Total Protein 6.8 G/DL (6.4-8.2) Albumin 3.0 G/DL (3.4-5.0) L Globulin 3.8 g/dL Albumin/Globulin Ratio 0.8 (1.0-2.7) L Triglycerides Level 60 MG/DL (30-150) Cholesterol Level 160 MG/DL (< 200) LDL Cholesterol 92 mg/dL (<100) HDL Cholesterol 66 MG/DL (40-60) H Cholesterol/HDL Ratio 2.4 (3.3-4.4) L Microbiology Date/Time Source Procedure Growth Status 05/29/18 22:15 Blood Blood Culture - Preliminary Resulted 05/29/18 22:05 Blood Blood Culture - Preliminary NO GROWTH AFTER 24 HOURS Resulted 05/29/18 23:04 Urine,Clean Catch Urine Culture - Preliminary Mixed Urogenital Contaminants Resulted Bob Hanna MD May 31, 2018 18:43
[2018-05-31 20:00] VITALS: BP 153/87
[2018-06-01] VITALS (8 sets, daily range): BP systolic 109–149; BP diastolic 46–101
[2018-06-01 04:56] LABS: BASOPHILS % (AUTO) 0.4 % (0.0-2.0); EOSINOPHILS % (AUTO) 3.6 % (0.0-3.0); HEMATOCRIT 32.5 % (42.0-52.0); HEMOGLOBIN 11.4 G/DL (14.2-18.0); MEAN CORPUSCULAR VOLUME 97 FL (80-99); MONOCYTES % (AUTO) 9.1 % (1.0-10.0); NEUTROPHILS % (AUTO) 66.9 % (45.0-75.0); PLATELET COUNT 152 K/UL (150-450); RED BLOOD COUNT 3.35 M/UL (4.70-6.10); RED CELL DISTRIBUTION WIDTH 11.7 % (11.6-14.8)
[2018-06-01 05:22] LABS: ANION GAP 6 mmol/L (5-15); BLOOD UREA NITROGEN 22 mg/dL (7-18); CALCIUM 8.1 MG/DL (8.5-10.1); CARBON DIOXIDE 31 MMOL/L (21-32); CHLORIDE 103 MMOL/L (98-107); CREATININE 0.9 MG/DL (0.55-1.30); POTASSIUM 3.3 MMOL/L (3.5-5.1); SODIUM 140 MMOL/L (136-145)
--- NOTE | 2018-06-01 08:42 | General Progress Note ---
Assessment/Plan Problem List: (1) Sepsis ICD Codes: A41.9 - Sepsis, unspecified organism SNOMED: 74427929 (2) DVT (deep venous thrombosis) ICD Codes: I82.409 - Acute embolism and thrombosis of unspecified deep veins of unspecified lower extremity SNOMED: 334167282 (3) Gait abnormality ICD Codes: R26.9 - Unspecified abnormalities of gait and mobility SNOMED: 53926545 (4) Parkinson's disease ICD Codes: G20 - Parkinson's disease SNOMED: 54854063 (5) Pulmonary emboli ICD Codes: I26.99 - Other pulmonary embolism without acute cor pulmonale SNOMED: 01554662 Qualifiers: Qualified Codes: I26.99 - Other pulmonary embolism without acute cor pulmonale (6) NSTEMI (non-ST elevated myocardial infarction) ICD Codes: I21.4 - Non-ST elevation (NSTEMI) myocardial infarction SNOMED: 675970207 Assessment/Plan eliquis, vanco, cardiac eval ongoing, orthostatic vs dc vanco as coontam coag neg staph, replace K, no mi but nonspecific trop leak from PE Subjective Constitutional: Reports: weakness HEENT: Reports: no symptoms Respiratory: Reports: no symptoms Gastrointestinal/Abdominal: Reports: no symptoms Genitourinary: Reports: no symptoms Neurologic/Psychiatric: Reports: pre-existing deficit Endocrine: Reports: no symptoms Allergies: Coded Allergies: HALOPERIDOL (Verified Allergy, Unknown, 05/29/18) Objective Last 24 Hour Vital Signs Date Time Temp Pulse Resp B/P (MAP) Pulse Ox O2 Delivery O2 Flow Rate FiO2 06/01/18 08:31 78 18 109/46 (67) 92 06/01/18 08:26 97.0 75 18 143/83 (103) 94 97.0 06/01/18 04:00 Nasal Cannula 3.0 06/01/18 04:00 97.8 64 20 134/75 (94) 94 97.8 06/01/18 04:00 62 06/01/18 00:00 98.2 68 18 122/73 (89) 93 98.2 06/01/18 00:00 Nasal Cannula 3.0 06/01/18 00:00 68 05/31/18 20:00 98.2 69 20 153/87 (109) 93 98.2 05/31/18 20:00 Nasal Cannula 3.0 05/31/18 20:00 69 05/31/18 16:00 66 05/31/18 16:00 97.5 65 18 157/88 (111) 94 97.5 05/31/18 16:00 Nasal Cannula 4.0 05/31/18 12:00 98.1 64 20 128/72 (90) 97 98.1 05/31/18 12:00 Nasal Cannula 4.0 05/31/18 11:50 78 Intake and Output 05/31/18 06/01/18 19:00 07:00 Intake Total 1792 ml 350 ml Output Total 1 ml Balance 1791 ml 350 ml Intake Oral 1700 ml 350 ml IV Total 92 ml Output Urine Total 1 ml # Bowel Movements 1 Laboratory Tests 06/01/18 03:31: White Blood Count 8.0, Red Blood Count 3.35L, Hemoglobin 11.4L, Hematocrit 32.5L , Mean Corpuscular Volume 97, Mean Corpuscular Hemoglobin 34.0H, Mean Corpuscular Hemoglobin Concent 35.1, Red Cell Distribution Width 11.7, Platelet Count 152, Mean Platelet Volume 8.9, Neutrophils (%) (Auto) 66.9, Lymphocytes (% ) (Auto) 20.0, Monocytes (%) (Auto) 9.1, Eosinophils (%) (Auto) 3.6H, Basophils (%) (Auto) 0.4, Sodium Level 140, Potassium Level 3.3L, Chloride Level 103, Carbon Dioxide Level 31, Anion Gap 6, Blood Urea Nitrogen 22H, Creatinine 0.9, Estimat Glomerular Filtration Rate , Glucose Level 95, Lactic Acid Level 0.90, Calcium Level 8.1L Height (Feet): 5 Height (Inches): 7.00 Weight (Pounds): 170 General Appearance: no apparent distress, alert EENT: normal ENT inspection Neck: normal alignment Cardiovascular: normal rate, regular rhythm Respiratory/Chest: lungs clear Abdomen: non tender, soft Edema: no edema noted Arm (L), no edema noted Arm (R), no edema noted Leg (L), no edema noted Leg (R), no edema noted Pedal (L), no edema noted Pedal (R), no edema noted 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
[2018-06-01] MEDS: Timoptic 0.25% Op Soln 2.5ml LEFT EYE SCH (09:00)
[2018-06-01] MEDS: Aspirin Baby 81mg ORAL SCH (09:30)
[2018-06-01] MEDS: Levodopa/Carbidopa CR 50/200 tab ORAL SCH ×2 (09:31→20:41)
[2018-06-01] MEDS: Levodopa/Carbidopa 25/100 tab ORAL SCH ×4 (09:31→20:42)
[2018-06-01] MEDS: Eliquis 2.5mg tablet ORAL SCH (09:32)
--- NOTE | 2018-06-01 19:05 | Cardiology Progress Note ---
Assessment/Plan Assessment/Plan bilateral pulm emboli chest pain / abn cardiac enzyme likely related to above hs of htn parkinsonism hs of recent fall and syncope bacteremia 1/2 final id pending dvt bellow the knee remaining pulmonary hypertension echo normal lv wall motion and function but has pulm htn pt may have had a stress test with usual test driver dr yaniv rodriguez this year per i suspect trop abn related to PE not an acs on noacs need higher initial doses tele reviewed may need to have cano for cause of PE venous duplex postive for bellow dvt d/w watch bp reading would be tolerant of higher bp readings in settingof orthostatic hypotension orthostatic vitals walked in [place] with less assistance Subjective Cardiovascular: Denies: chest pain, lightheadedness, palpitations Respiratory: Denies: shortness of breath Gastrointestinal/Abdominal: Denies: abdominal pain Genitourinary: Reports: other - bleedign form penis Objective Last 24 Hour Vital Signs Date Time Temp Pulse Resp B/P (MAP) Pulse Ox O2 Delivery O2 Flow Rate FiO2 06/01/18 17:10 72 06/01/18 17:05 68 06/01/18 17:00 72 06/01/18 16:00 96.4 60 20 149/77 (101) 98 96.4 06/01/18 16:00 59 06/01/18 12:00 97.5 63 20 147/101 (116) 99 97.5 06/01/18 12:00 Nasal Cannula 3.0 06/01/18 12:00 65 06/01/18 09:00 103 67 79 06/01/18 08:45 83 20 112/63 (79) 92 06/01/18 08:31 78 18 109/46 (67) 92 06/01/18 08:26 97.0 75 18 143/83 (103) 94 97.0 06/01/18 08:00 Nasal Cannula 3.0 06/01/18 08:00 56 06/01/18 04:00 Nasal Cannula 3.0 06/01/18 04:00 97.8 64 20 134/75 (94) 94 97.8 06/01/18 04:00 62 06/01/18 00:00 98.2 68 18 122/73 (89) 93 98.2 06/01/18 00:00 Nasal Cannula 3.0 06/01/18 00:00 68 05/31/18 20:00 98.2 69 20 153/87 (109) 93 98.2 05/31/18 20:00 Nasal Cannula 3.0 05/31/18 20:00 69 General Appearance: no apparent distress, alert Neck: supple Cardiovascular: normal rate, regular rhythm Respiratory/Chest: lungs clear Abdomen: normal bowel sounds, non tender, soft Extremities: no swelling Intake and Output 05/31/18 06/01/18 19:00 07:00 Intake Total 1792 ml 350 ml Output Total 1 ml Balance 1791 ml 350 ml Intake Oral 1700 ml 350 ml IV Total 92 ml Output Urine Total 1 ml # Bowel Movements 1 Laboratory Tests Test 06/01/18 03:31 White Blood Count 8.0 K/UL (4.8-10.8) Red Blood Count 3.35 M/UL (4.70-6.10) L Hemoglobin 11.4 G/DL (14.2-18.0) L Hematocrit 32.5 % (42.0-52.0) L Mean Corpuscular Volume 97 FL (80-99) Mean Corpuscular Hemoglobin 34.0 PG (27.0-31.0) H Mean Corpuscular Hemoglobin Concent 35.1 G/DL (32.0-36.0) Red Cell Distribution Width 11.7 % (11.6-14.8) Platelet Count 152 K/UL (150-450) Mean Platelet Volume 8.9 FL (6.5-10.1) Neutrophils (%) (Auto) 66.9 % (45.0-75.0) Lymphocytes (%) (Auto) 20.0 % (20.0-45.0) Monocytes (%) (Auto) 9.1 % (1.0-10.0) Eosinophils (%) (Auto) 3.6 % (0.0-3.0) H Basophils (%) (Auto) 0.4 % (0.0-2.0) Sodium Level 140 MMOL/L (136-145) Potassium Level 3.3 MMOL/L (3.5-5.1) L Chloride Level 103 MMOL/L (98-107) Carbon Dioxide Level 31 MMOL/L (21-32) Anion Gap 6 mmol/L (5-15) Blood Urea Nitrogen 22 mg/dL (7-18) H Creatinine 0.9 MG/DL (0.55-1.30) Estimat Glomerular Filtration Rate mL/min (>60) Glucose Level 95 MG/DL (74-106) Lactic Acid Level 0.90 mmol/L (0.4-2.0) Calcium Level 8.1 MG/DL (8.5-10.1) L Microbiology Date/Time Source Procedure Growth Status 05/29/18 22:15 Blood Blood Culture - Preliminary Staphylococcus Sp Coag Neg Resulted 05/29/18 22:05 Blood Blood Culture - Preliminary NO GROWTH AFTER 48 HOURS Resulted 05/30/18 00:23 Nasal Nares MRSA Culture - Final NO METHICILLIN RESISTANT STAPH AUREUS... Complete 05/29/18 23:04 Urine,Clean Catch Urine Culture - Final Mixed Urogenital Contaminants Complete 05/30/18 00:23 Rectum VRE Culture - Final NO VANCOMYCIN RESISTANT ENTEROCOCCUS ... Complete 05/30/18 00:23 Rectum - Final NO CARBAPENEM-RESISTANT ENTEROBACTERI... Complete oBb Hanna MD Jun 01, 2018 19:05
[2018-06-01 19:12] LABS: APPEARANCE,URINE CLOUDY; BILIRUBIN, URINE 1+ (NEGATIVE); COLOR,URINE BROWN; GLUCOSE, URINE (UA) NEGATIVE (NEGATIVE); KETONES,URINE 2+ (NEGATIVE); LEUKOCYTE ESTERASE ,URINE 2+ (NEGATIVE); NITRITE,URINE NEGATIVE (NEGATIVE); PH,URINE 5 (4.5-8.0); PROTEIN,URINE 3+ (NEGATIVE); UROBILINOGEN,URINE 4 MG/DL (0.0-1.0)
[2018-06-02] VITALS: BP 139/60
[2018-06-02 04:00] VITALS: BP 132/65
[2018-06-02 07:15] LABS: ANION GAP 5 mmol/L (5-15); BLOOD UREA NITROGEN 21 mg/dL (7-18); CALCIUM 8.3 MG/DL (8.5-10.1); CARBON DIOXIDE 30 MMOL/L (21-32); CHLORIDE 106 MMOL/L (98-107); POTASSIUM 4.2 MMOL/L (3.5-5.1); SODIUM 141 MMOL/L (136-145)
[2018-06-02 08:00] VITALS: BP 137/78
[2018-06-02] MEDS: Levodopa/Carbidopa 25/100 tab ORAL SCH ×2 (08:26→13:01)
[2018-06-02] MEDS: Levodopa/Carbidopa CR 50/200 tab ORAL SCH (08:26)
[2018-06-02] MEDS: Timoptic 0.25% Op Soln 2.5ml LEFT EYE SCH (08:27)
[2018-06-02] MEDS: Aspirin Baby 81mg ORAL SCH (08:27)
--- NOTE | 2018-06-02 11:37 | Diagnostic Imaging Report ---
Indication: Hematuria Technique: Noncontrast CT of the abdomen and pelvis utilizing automated exposure control. Axial, sagittal and coronal reformats presented. CT dose: Total DLP 694.42 mGycm; CTDI vol 14.12 mGy Comparison: None Findings: Please note that evaluation of the abdominal and pelvic viscera and vascular structures is limited without the use of intravenous and oral contrast. Within these limitations the following observations are made: Small right and trace left pleural effusion with adjacent likely compressive atelectasis in the bilateral lower lobes. There is trace pericardial fluid, similar to CT angiogram of the chest. Coronary arterial calcifications partially visualized. Heart is enlarged. There is cholelithiasis. No evidence to suggest acute cholecystitis on this noncontrast CT. Hepatic contour appears smooth. No appreciable biliary ductal dilatation. Spleen, adrenal glands and pancreas grossly unremarkable. There is nonspecific bilateral perinephric stranding. There are centimeter stones in the upper pole the right kidney, with the largest measuring approximately 6 mm (series 3 image #45). There is an area of cortical scarring with small focal caliectasis in the upper pole the right kidney. Subcentimeter calcification in the left renal hilum may represent vascular calcification versus nonobstructing stone. No evidence of hydronephrosis bilaterally. There are simple appearing renal cysts on the left. Additional low-attenuation structures are too small to fully characterize but may also represent simple cysts. There is some mild cortical scarring in the midpole the left kidney posteriorly. Additionally there are some subcentimeter high attenuation well-circumscribed lesions in the left kidney which may represent a proteinaceous cyst. A there is bladder wall thickening. The prostate is enlarged and heterogeneous and contains coarse central calcifications. There is mass effect upon the bladder by the prostate. There is no free intraperitoneal air. No evidence of bowel obstruction. Appendix is normal. Abdominal aorta is normal in caliber with moderate atherosclerotic calcification. There are degenerative changes of the spine. No acute osseous abnormality seen. Sclerotic foci in the pelvic bones bilaterally most likely represent bone islands. There are degenerative changes of the hips. IMPRESSION: Limited exam without intravenous and oral contrast. Within these limitations: * Bilateral subcentimeter renal stones, right greater than left. No evidence of hydronephrosis bilaterally. There is cortical thinning/scarring and focal caliectasis in the upper pole the right kidney which may represent sequela of prior infection or chronic stones. * Enlarged heterogeneous prostate exerting mass effect on the bladder. Findings likely related to prostatic hyperplasia however the possibility of prostatic neoplasm not excluded. Correlate with digital rectal exam and PSA. * Bladder wall thickening likely related to degree of outlet obstruction given enlarged prostate. Correlate with urinalysis to exclude cystitis. * Left-sided simple appearing renal cysts. There are some high attenuation, subcentimeter lesions in the left kidney which may represent hemorrhagic or proteinaceous cysts. * Cholelithiasis. No CT evidence to suggest acute cholecystitis. * Cardiomegaly. Trace pericardial effusion. Coronary arterial calcification partially visualized. * Small right and trace left pleural effusions with adjacent compressive atelectasis in the lower lobes. * Small sclerotic lesions in the pelvic bones likely represent bone islands. Additional incidental findings as above. The CT scanner at [facility] is accredited by the [employer] and the scans are performed using protocols designed to limit radiation exposure to as low as reasonably achievable to attain images of sufficient resolution adequate for diagnostic evaluation.
[2018-06-02 12:00] VITALS: BP 147/79
[2018-06-02] MEDS ORDERED: BYSTOLIC5 MG ORAL (13:23)
[2018-06-02] MEDS ORDERED: ELIQUIS5 MG PO (13:23)
[2018-06-02] MEDS ORDERED: Levofloxacin 500mg tab ORAL SCH (13:30)
[2018-06-02] MEDS ORDERED: Eliquis 2.5mg tablet ORAL SCH ×2 (13:30→18:00)
[2018-06-02] MEDS ORDERED: Tubing IV Secondary IV ONE (14:09)
[2018-06-02] MEDS ORDERED: NS 275ml ONE (14:09)
--- NOTE | 2018-06-03 02:31 | Discharge Summary ---
DATE OF ADMISSION: 05/29/2018 DATE OF DISCHARGE: 06/02/2018 PERTINENT HISTORY: The patient is an 83-year-old man who lives at home with family. He became very weak and basically collapsed at home. He was seen in the emergency room and evaluated and studies were done including a CT angio of the chest which confirmed pulmonary emboli. He has history of Parkinson disease and BPH. PERTINENT PHYSICAL FINDINGS: LUNGS: Clear. HEART: Regular rhythm. ABDOMEN: Soft without organomegaly or masses. GENITOURINARY: Penis and testes normal. EXTREMITIES: Trace edema. NEUROLOGIC: He is alert and oriented. He had moderate parkinsonian tremor. Moved all extremities. COURSE IN THE HOSPITAL: The patient was anticoagulated initially with heparin and subsequently apixaban. He had borderline troponin elevation likely due to his pulmonary emboli and was seen by Dr. Hanna in cardiologic consultation. In the recent past, his antihypertensive medicines were reduced as severe orthostatic hypotension, which likely was related to Parkinson disease and medications were reduced. The patient's Parkinson treatment was continued. He did have an episode of gross hematuria and the apixaban was held for about 24 hours, and the urine cleared. A CT urogram was done showing tiny nonobstructive kidney stones and BPH. The patient also saw physical therapy and was able to ambulate better. There was no syncope or near syncope and was discharged home in stable condition improved. FINAL DIAGNOSES: 1. Pulmonary emboli. 2. Episode of likely orthostatic hypotension at home. 3. Hematuria, likely secondary to anticoagulant and benign prostatic hypertrophy. 4. Gait disorder. 5. Parkinson disease. 6. History of hypertension. 7. History of orthostatic hypotension. DISCHARGE DISPOSITION: He was discharged home on regular diet as tolerated. Medications per the discharge medication list. The patient's family was given office information for Dr. Ricketts to make an appointment as needed and to follow up with prior staff technologist and neurologist. Alan Ricketts M.D. DR: Denia JOB#: [id number] CC:
[2018-06-06] MEDS ORDERED: Eliquis 2.5mg tablet ORAL SCH (09:00)
== END 2018-06-02 14:10 | disposition home or self-care (01) | DRG 176 ==
LOC: EDBD 21:58 → EMR 22:08 → 2W 23:14 → EDBEDREQ 05-30 00:50 → 2E 06-01 14:37
DX: I26.99 Other pulmonary embolism without acute cor pulmonale (principal); I82.441 Acute embolism and thrombosis of right tibial vein; R78.81 Bacteremia; G20 Parkinson's disease; I10 Essential (primary) hypertension; I27.20 Pulmonary hypertension, unspecified; R09.02 Hypoxemia; I95.9 Hypotension, unspecified; N40.0 Benign prostatic hyperplasia without lower urinary tract symptoms; R31.9 Hematuria, unspecified; Z91.81 History of falling
CPT/HCPCS: 36415; 71045; 71275; 74176; 80048; 80053; 80061; 81001; 81003; 82248; 82550; 83605; 83690; 83880; 84484; 85007; 85025; 85610; 85730; 87040; 87081; 87086; 87181; 93005; 93306; 93970; 94640; 94664; 99285; J8499